=== PATIENT | female | born 1980 | race Hispanic/Latino ===

== ENCOUNTER 2017-08-19 09:57 | Emergency (ER) | payer OTHER ==
[2017-08-19] MEDS ORDERED: TETANUS/DIPHTHERIA TOXOID [ADULT] 0.5 ML VIAL IM ONE (10:22)
[2017-08-19] MEDS ORDERED: LIDOCAINE HCL 1% 20 ML VIAL ONE (10:27)
== END 2017-08-19 12:13 | disposition home or self-care (01) ==
LOC: EDH 09:57
DX: S01.111A Laceration without foreign body of right eyelid and periocular area, initial encounter (principal); S80.01XA Contusion of right knee, initial encounter; S80.02XA Contusion of left knee, initial encounter; E07.9 Disorder of thyroid, unspecified; Z90.49 Acquired absence of other specified parts of digestive tract; Z90.710 Acquired absence of both cervix and uterus; W01.198A Fall on same level from slipping, tripping and stumbling with subsequent striking against other object, initial encounter; Y93.89 Activity, other specified; Y92.89 Other specified places as the place of occurrence of the external cause; Y99.8 Other external cause status
CPT/HCPCS: 12051; 73562; 90471; 90714

== ENCOUNTER 2017-08-24 08:21 | Emergency (ER) | payer OTHER ==
[2017-08-24] MEDS ORDERED: HYDROCODONE/ACETAMINOPHEN 10/325 MG TAB ONE (08:45)
[2017-08-24] MEDS ORDERED: IBUPROFEN 400 MG TABLET ONE (09:23)
== END 2017-08-24 10:03 | disposition home or self-care (01) ==
LOC: EDH 08:21
DX: S93.491A Sprain of other ligament of right ankle, initial encounter (principal); S90.31XA Contusion of right foot, initial encounter; M25.561 Pain in right knee; M54.9 Dorsalgia, unspecified; E07.9 Disorder of thyroid, unspecified; Z90.49 Acquired absence of other specified parts of digestive tract; Z90.710 Acquired absence of both cervix and uterus; X58.XXXA Exposure to other specified factors, initial encounter; Y93.89 Activity, other specified; Y92.89 Other specified places as the place of occurrence of the external cause; Y99.8 Other external cause status
CPT/HCPCS: 73610; 73630

== ENCOUNTER 2018-05-31 08:41 | Emergency (ER) | payer MEDICAID, OTHER ==
[2018-05-31] MEDS ORDERED: KETOROLAC TROMETHAMINE 60 MG/2 ML VIAL ONE (09:11)
[2018-05-31] MEDS ORDERED: DEXAMETHASONE SOD PHOSPHATE 10MG/ML 1ML VIAL ONE (09:11)
== END 2018-05-31 10:09 | disposition home or self-care (01) ==
LOC: EDH 08:41
DX: M54.12 Radiculopathy, cervical region (principal); M79.601 Pain in right arm; E07.9 Disorder of thyroid, unspecified; Z88.8 Allergy status to other drugs, medicaments and biological substances; Z90.710 Acquired absence of both cervix and uterus; Z90.49 Acquired absence of other specified parts of digestive tract; Z87.891 Personal history of nicotine dependence
CPT/HCPCS: 72040; 96372 ×2; 99283; J1100; J1885

== ENCOUNTER 2018-10-31 18:54 | Emergency (ER) | payer MEDICAID ==
[2018-10-31 19:29] LABS: BASOPHILS % (AUTO) 0.4 % (0.0-5.0); EOSINOPHILS % (AUTO) 0.5 % (0.0-8.0); HEMATOCRIT 37.9 % (36-48); LYMPHOCYTES % (AUTO) 10.4 % (21.0-51.0); MEAN CORPUSCULAR HEMOGLOBIN 32.5 pg (27.0-33.0); MEAN CORPUSCULAR HGB CONC 34.7 g/dL (32.0-36.0); MEAN CORPUSCULAR VOLUME 93.5 fL (79-99); MONOCYTES % (AUTO) 5.4 % (3.0-13.0); NEUTROPHILS % (AUTO) 83.3 % (40.0-77.0); PLATELET COUNT (AUTO) 329 K/uL (130-400); RED BLOOD CELL COUNT(AUTO) 4.05 MIL/uL (4.00-5.50); RED CELL DISTRIBUTION WIDTH 12.8 % (11.0-15.5); WHITE BLOOD COUNT (AUTO) 9.8 K/uL (4.8-10.8)
[2018-10-31] MEDS ORDERED: DiphenhydrAMINE HCL 50 MG/ML VIAL ONE (19:29)
[2018-10-31] MEDS ORDERED: METHYLPREDNISOLONE SOD SUCC 125MG/2ML VIAL ONE (19:29)
[2018-10-31] MEDS ORDERED: FAMOTIDINE/PF 20 MG/2 ML VIAL IV ONE (19:30)
[2018-10-31 19:40] LABS: CREATININE 1.1 mg/dL (0.5-1.5); POTASSIUM 3.5 mmol/L (3.5-5.1)
[2018-10-31 19:44] LABS: ALBUMIN 3.5 g/dL (3.5-5.0); BILIRUBIN,TOTAL 0.2 mg/dL (0.2-1.0); TOTAL PROTEIN, SERUM 7.9 g/dL (6.0-8.3)
[2018-10-31] MEDS ORDERED: IOHEXOL-350 50ML VIAL IV ONE (21:12)
[2018-10-31 22:06] LABS: BILIRUBIN,URINE Negative (NEGATIVE); COLOR,URINE Yellow (YELLOW); GLUCOSE, URINE (UA) Negative (NEGATIVE); KETONES,URINE Negative (NEGATIVE); LEUKOCYTE ESTERASE ,URINE Negative (NEGATIVE); NITRATE,URINE Negative (NEGATIVE); OCCULT BLOOD,URINE Negative (NEGATIVE); PH,URINE 6.5 (5.0-8.0); PROTEIN,URINE Negative (NEGATIVE); UROBILINOGEN,URINE 0.2 mg/dL (0.2-1.0)
[2018-10-31 22:13] LABS: APPEARANCE,URINE CLEAR (CLEAR)
== END 2018-10-31 23:47 | disposition home or self-care (01) ==
LOC: EDH 18:54
DX: E04.9 Nontoxic goiter, unspecified (principal); E07.9 Disorder of thyroid, unspecified; Z90.49 Acquired absence of other specified parts of digestive tract; Z90.710 Acquired absence of both cervix and uterus; Z88.5 Allergy status to narcotic agent; Z88.8 Allergy status to other drugs, medicaments and biological substances
CPT/HCPCS: 36415; 70491; 80053; 81003; 85025; 93005; 96374; 96375; 99285; J1200; J2930; J3490; Q9967

== ENCOUNTER 2019-08-06 00:35 | Emergency (ER) | payer BC, MEDICAID ==
[2019-08-06] MEDS ORDERED: KETOROLAC TROMETHAMINE 60 MG/2 ML VIAL ONE (00:51)
[2019-08-06] MEDS ORDERED: LIDOCAINE 5% TOPICAL PATCH TP ONE (00:52)
[2019-08-06] MEDS ORDERED: DIAZEPAM 5 MG TABLET ONE (00:52)
== END 2019-08-06 01:27 | disposition home or self-care (01) ==
LOC: EDH 00:35
DX: M54.16 Radiculopathy, lumbar region (principal); Z90.49 Acquired absence of other specified parts of digestive tract; Z90.710 Acquired absence of both cervix and uterus; Z88.5 Allergy status to narcotic agent; Z88.2 Allergy status to sulfonamides
CPT/HCPCS: 96372; 99284; J1885

== ENCOUNTER 2020-06-19 19:30 | Emergency (ER) | payer BC ==
[2020-06-19 20:00] LABS: APPEARANCE,URINE Clear (CLEAR); BILIRUBIN,URINE Negative (NEGATIVE); COLOR,URINE Yellow (YELLOW); GLUCOSE, URINE (UA) Negative (NEGATIVE); KETONES,URINE Negative (NEGATIVE); LEUKOCYTE ESTERASE ,URINE Negative (NEGATIVE); NITRATE,URINE Negative (NEGATIVE); OCCULT BLOOD,URINE Negative (NEGATIVE); PH,URINE 6.5 (5.0-8.0); PROTEIN,URINE Negative (NEGATIVE); UROBILINOGEN,URINE 0.2 mg/dL (0.2-1.0)
[2020-06-19 20:31] LABS: BASOPHILS % (AUTO) 0.2 % (0.0-5.0); EOSINOPHILS % (AUTO) 0.2 % (0.0-8.0); HEMATOCRIT 41.8 % (36-48); LYMPHOCYTES % (AUTO) 23.6 % (21.0-51.0); MEAN CORPUSCULAR HEMOGLOBIN 31.6 pg (27.0-33.0); MEAN CORPUSCULAR HGB CONC 34.7 g/dL (32.0-36.0); MEAN CORPUSCULAR VOLUME 91.1 fL (79-99); MONOCYTES % (AUTO) 8.9 % (3.0-13.0); NEUTROPHILS % (AUTO) 66.9 % (40.0-77.0); PLATELET COUNT (AUTO) 283 K/uL (130-400); RED BLOOD CELL COUNT(AUTO) 4.59 MIL/uL (4.00-5.50); WHITE BLOOD COUNT (AUTO) 4.3 K/uL (4.8-10.8)
[2020-06-19] MEDS ORDERED: 0.9%NACL 1000ML 1,000 ML IV ONE (20:38)
[2020-06-19 20:47] LABS: POTASSIUM 4.2 mmol/L (3.5-5.1); PROTHROMBIN TIME 10.7 SEC (9.6-11.6)
[2020-06-19 20:48] LABS: PARTIAL THROMBOPLASTIN TIME 26.4 SEC (26.3-35.5)
[2020-06-19 20:52] LABS: ALBUMIN 3.2 g/dL (3.5-5.0); BILIRUBIN,TOTAL 0.3 mg/dL (0.2-1.0); TOTAL PROTEIN, SERUM 8.3 g/dL (6.0-8.3)
[2020-06-19 21:02] LABS: PHOSPHORUS 3.4 mg/dL (2.5-4.9)
[2020-06-19] MEDS ORDERED: IOHEXOL-350 75 ML VIAL IV ONE (22:04)
== END 2020-06-19 23:43 | disposition home or self-care (01) ==
LOC: EDH 19:30
DX: U07.1 COVID-19 (principal); E86.0 Dehydration; E07.9 Disorder of thyroid, unspecified; Z88.6 Allergy status to analgesic agent; Z90.710 Acquired absence of both cervix and uterus; Z90.49 Acquired absence of other specified parts of digestive tract
CPT/HCPCS: 36415; 71045; 71275; 80050; 81003; 83735; 83880; 84100; 84484; 85378; 85610; 85730; 87426; 93005; 96360; 96361; 99285; J7030; Q9967; 80053; 84443; 85025

== ENCOUNTER → 2020-10-26 | Outpatient (CLI) | payer BC | END | disposition home or self-care (01) | LOC: SHCH 08:49 | PROVIDERS: ATTEND Internal Medicine Cardiovascular Disease | DX: R00.2 Palpitations (principal) | CPT/HCPCS: 93306; 93356 ==

== ENCOUNTER → 2020-11-15 | Outpatient (CLI) | payer BC | END | disposition home or self-care (01) | LOC: SHCH 13:52 | PROVIDERS: ATTEND Internal Medicine Cardiovascular Disease | DX: I87.2 Venous insufficiency (chronic) (peripheral) (principal) | CPT/HCPCS: 93970 ==

== ENCOUNTER 2021-06-19 14:46 | Emergency (ER) | payer BC ==
[~2021-06-19] VITALS: Ht 160 cm; Wt 97.5 kg
[2021-06-19 15:37] LABS: BASOPHILS % (AUTO) 0.2 % (0.0-5.0); HEMATOCRIT 41.1 % (36-48); LYMPHOCYTES % (AUTO) 4.9 % (21.0-51.0); MEAN CORPUSCULAR HEMOGLOBIN 31.5 pg (27.0-33.0); MEAN CORPUSCULAR HGB CONC 34.5 g/dL (32.0-36.0); MEAN CORPUSCULAR VOLUME 91.1 fL (79-99); MONOCYTES % (AUTO) 2.9 % (3.0-13.0); NEUTROPHILS % (AUTO) 91.6 % (40.0-77.0); PLATELET COUNT (AUTO) 434 K/uL (130-400); RED BLOOD CELL COUNT(AUTO) 4.51 MIL/uL (4.00-5.50); WHITE BLOOD COUNT (AUTO) 11.1 K/uL (4.8-10.8)
[2021-06-19 15:39] LABS: APPEARANCE,URINE Clear (CLEAR); BILIRUBIN,URINE Negative (NEGATIVE); COLOR,URINE Yellow (YELLOW); GLUCOSE, URINE (UA) Negative (NEGATIVE); KETONES,URINE Trace mg/dL (NEGATIVE); LEUKOCYTE ESTERASE ,URINE Negative (NEGATIVE); NITRATE,URINE Negative (NEGATIVE); OCCULT BLOOD,URINE Negative (NEGATIVE); PROTEIN,URINE Trace mg/dL (NEGATIVE)
[2021-06-19 15:44] LABS: BACTERIA,URINE Few /HPF (None Seen); RBC,URINE 0-1 /HPF (0-1); SQUAMOUS EPITHELIAL CELL,UR Moderate /HPF (0-2); WBC,URINE 0-1 /HPF (0-1)
[2021-06-19 15:48] LABS: CREATININE 1.1 mg/dL (0.5-1.5); POTASSIUM 3.3 mmol/L (3.5-5.1)
[2021-06-19 15:52] LABS: ALBUMIN 3.8 g/dL (3.5-5.0); BILIRUBIN,TOTAL 0.5 mg/dL (0.2-1.0); TOTAL PROTEIN, SERUM 8.6 g/dL (6.0-8.3)
[2021-06-19] MEDS ORDERED: 0.9%NACL 1000ML 1,000 ML IV ONE (16:00)
[2021-06-19] MEDS ORDERED: MORPHINE 2 MG SYG IVP ONE (16:00)
[2021-06-19] MEDS ORDERED: ONDANSETRON 4MG INJ IVP ONE (16:00)
[2021-06-19] MEDS ORDERED: IOHEXOL-350 75 ML VIAL IV ONE (16:00)
[2021-06-19 16:42] VITALS: BP 148/71
[2021-06-19] MEDS ORDERED: CIPR-278 PO (17:09)
[2021-06-19] MEDS ORDERED: METO10TA41 PO (17:09)
[2021-06-19] MEDS ORDERED: KCL 20 MEQ ERTAB PO ONE (17:30)
== END 2021-06-19 17:48 | disposition home or self-care (01) ==
LOC: EDH 14:46
DX: K52.9 Noninfective gastroenteritis and colitis, unspecified (principal); E03.9 Hypothyroidism, unspecified; Z88.5 Allergy status to narcotic agent; Z90.49 Acquired absence of other specified parts of digestive tract; Z90.710 Acquired absence of both cervix and uterus
CPT/HCPCS: 36415; 74177; 80053; 81001; 82150; 83690; 85025; 96374; 96375; 99284; J2405; Q9967

== ENCOUNTER 2022-10-13 23:07 | Emergency (ER) | payer BC ==
[~2022-10-13] VITALS: Ht 160 cm; Wt 90.7 kg
[~2022-10-13 23:07] MED LIST: CIPR-278 PO; METO10TA41 PO
[2022-10-13] MEDS ORDERED: NITROGLYCERIN 0.4 MG SL TAB SL PRN (23:30)
[2022-10-13] MEDS ORDERED: KETOROLAC 30MG VIAL (30MG/ML) IVP ONE (23:30)
[2022-10-13] MEDS ORDERED: ASPIRIN 325MG TAB PO ONE (23:30)
[2022-10-13 23:36] LABS: BASOPHILS % (AUTO) 0.3 % (0.0-5.0); EOSINOPHILS % (AUTO) 0.5 % (0.0-8.0); HEMATOCRIT 41.6 % (36-48); LYMPHOCYTES % (AUTO) 19.6 % (21.0-51.0); MEAN CORPUSCULAR HEMOGLOBIN 30.1 pg (27.0-33.0); MEAN CORPUSCULAR HGB CONC 33.9 g/dL (32.0-36.0); MEAN CORPUSCULAR VOLUME 88.7 fL (79-99); NEUTROPHILS % (AUTO) 72.1 % (40.0-77.0); PLATELET COUNT (AUTO) 344 K/uL (130-400); RED BLOOD CELL COUNT(AUTO) 4.69 MIL/uL (4.00-5.50); RED CELL DISTRIBUTION WIDTH 12.7 % (11.0-15.5); WHITE BLOOD COUNT (AUTO) 8.6 K/uL (4.8-10.8)
[2022-10-13 23:47] LABS: CREATININE 0.9 mg/dL (0.5-1.5); POTASSIUM 3.4 mmol/L (3.5-5.1)
[2022-10-13 23:49] LABS: INR 0.94 (0.85-1.15); PROTHROMBIN TIME 10.3 SEC (9.6-11.6)
[2022-10-13 23:50] LABS: PARTIAL THROMBOPLASTIN TIME 25.8 SEC (26.3-35.5)
[2022-10-13 23:52] LABS: TOTAL PROTEIN, SERUM 8.4 g/dL (6.0-8.3)
[2022-10-14 00:17] LABS: B-TYPE NATRIURETIC PEPTIDE 42 pg/mL (0-100)
[2022-10-14 01:04] VITALS: BP 125/63
== END 2022-10-14 01:25 | disposition home or self-care (01) ==
LOC: EDH 23:07
DX: R07.9 Chest pain, unspecified (principal); E03.9 Hypothyroidism, unspecified; Z90.710 Acquired absence of both cervix and uterus; Z90.49 Acquired absence of other specified parts of digestive tract; Z88.8 Allergy status to other drugs, medicaments and biological substances
CPT/HCPCS: 99284; 71045; 84484; 80053; 83880; 85025; 85378; 85610; 85730; 36415; 93005; 96374; J1885

== ENCOUNTER 2022-12-20 13:42 | Emergency (ER) | payer BC ==
[~2022-12-20] VITALS: Ht 160 cm; Wt 88.0 kg
[2022-12-20] MEDS ORDERED: ACETAMINOPHEN 500 MG TABLET PO ONE (16:00)
[2022-12-20 18:54] VITALS: BP 124/67
== END 2022-12-20 18:45 | disposition home or self-care (01) ==
LOC: EDH 13:42
DX: S93.601A Unspecified sprain of right foot, initial encounter (principal); E03.9 Hypothyroidism, unspecified; Z88.5 Allergy status to narcotic agent; Z90.49 Acquired absence of other specified parts of digestive tract; Z90.710 Acquired absence of both cervix and uterus; X58.XXXA Exposure to other specified factors, initial encounter; Y93.01 Activity, walking, marching and hiking; Y92.89 Other specified places as the place of occurrence of the external cause; Y99.8 Other external cause status
CPT/HCPCS: 73630

== ENCOUNTER 2023-08-11 00:12 | Emergency (ER) | payer BC, MEDICAID ==
[~2023-08-11] VITALS: Ht 162.6 cm; Wt 99.8 kg
[2023-08-11] MEDS: ACETAMINOPHEN 500 MG TABLET PO ONE (00:33)
[2023-08-11] MEDS: IBUPROFEN 800 MG TAB PO ONE (00:33)
[2023-08-11] MEDS: METOCLOPRAMIDE 10 MG TABLET PO ONE (02:55)
[2023-08-11 04:00] LABS: BASOPHILS # (AUTO) 0.04 K/uL (0.00-0.20); BASOPHILS % (AUTO) 0.5 % (0.0-5.0); EOSINOPHILS # (AUTO) 0.09 K/uL (0.00-0.70); EOSINOPHILS % (AUTO) 1.1 % (0.0-8.0); HEMATOCRIT 37.4 % (36-48); IMMATURE GRANULOCYTE ABSOLUTE 0.04 K/uL (0-1); LYMPHOCYTES # (AUTO) 0.9 K/uL (1.0-4.8); LYMPHOCYTES % (AUTO) 11.3 % (21.0-51.0); MEAN CORPUSCULAR HEMOGLOBIN 31.3 pg (27.0-33.0); MEAN CORPUSCULAR VOLUME 89.5 fL (79-99); MONOCYTES # (AUTO) 0.7 K/uL (0.1-1.0); NEUTROPHILS # (AUTO) 6.5 K/uL (1.8-7.7); NEUTROPHILS % (AUTO) 78.6 % (40.0-77.0); PLATELET COUNT (AUTO) 308 K/uL (130-400); RED BLOOD CELL COUNT(AUTO) 4.18 MIL/uL (4.00-5.50); RED CELL DISTRIBUTION WIDTH 12.6 % (11.0-15.5); WHITE BLOOD COUNT (AUTO) 8.2 K/uL (4.8-10.8)
[2023-08-11 04:01] LABS: APPEARANCE,URINE CLEAR (CLEAR); BILIRUBIN,URINE NEGATIVE (NEGATIVE); COLOR,URINE LIGHT-YELLOW (YELLOW); GLUCOSE, URINE (UA) NEGATIVE (NEGATIVE); KETONES,URINE NEGATIVE (NEGATIVE); LEUKOCYTE ESTERASE ,URINE NEGATIVE Leu/uL (NEGATIVE); NITRATE,URINE NEGATIVE (NEGATIVE); OCCULT BLOOD,URINE NEGATIVE (NEGATIVE); PH,URINE 6.5 (5.0-8.0); PROTEIN,URINE NEGATIVE (NEGATIVE); UROBILINOGEN,URINE 0.2 mg/dL (0.2-1.0)
[2023-08-11 04:03] LABS: ADD UA MICROSCOPIC NO
[2023-08-11 04:08] LABS: RAPID GROUP A STREP negative (NEGATIVE)
[2023-08-11 04:11] LABS: CREATININE 1.2 mg/dL (0.5-1.5); POTASSIUM 3.9 mmol/L (3.5-5.1)
[2023-08-11 04:17] LABS: INFLUENZA TYPE A Negative For Type A (NEGATIVE); INFLUENZA TYPE B Negative For Type B (NEGATIVE)
[2023-08-11 04:40] LABS: COVID19 (SARS ANTIGEN RAPID) POSITIVE FOR SARS AG (NEGATIVE)
[2023-08-11 08:26] VITALS: BP 126/61; PULSE 75; RESP 17; O2SAT 99
[2023-08-11] MEDS ORDERED: ACET160S2 PO (08:34)
== END 2023-08-11 08:28 | disposition home or self-care (01) ==
LOC: EDH 00:12
DX: U07.1 COVID-19 (principal); G44.209 Tension-type headache, unspecified, not intractable; E03.9 Hypothyroidism, unspecified; Z88.5 Allergy status to narcotic agent; Z90.710 Acquired absence of both cervix and uterus; Z90.49 Acquired absence of other specified parts of digestive tract
CPT/HCPCS: 36415; 70450; 80048; 81003; 85025; 87426; 87804; 87880

== ENCOUNTER 2024-09-08 13:31 | Emergency (ER) | payer BC, MEDICAID ==
[~2024-09-08] VITALS: Ht 160 cm; Wt 104.3 kg
[~2024-09-08 13:31] MED LIST changes: +ACET160S2 PO
--- NOTE | 2024-09-08 15:28 | HMCIMG ---
Exam Type: LUMBAR SPINE 2-3VWS Clinical Information: pain Comparison: None Findings: Exam of the lumbosacral spine demonstrates no evidence of fracture or subluxation. There are mild spondylitic changes. The facet joints show minimal degenerative changes. The alignment of the spine is normal. The disc spaces are intact. Bone mineralization is normal. Impression: Spondylitic changes and degenerative changes of the apophyseal joints as noted.
--- NOTE | 2024-09-08 15:28 | HMCIMG ---
Exam Type: PELVIS COMPLETE MIN 3VWS Clinical Information: pain Comparison: None Findings: The bone examination is unremarkable. No fractures or dislocations are seen. No radiopaque foreign bodies are noted. Soft tissues are preserved. IMPRESSION: Normal examination.
[2024-09-08] MEDS: ketOROlac 15MG/ML VIAL (15MG/ML) IM ONE (16:05)
[2024-09-08] MEDS ORDERED: LIDO1ADH82 TP (16:24)
[2024-09-08] MEDS ORDERED: MELO-108 PO (16:24)
[2024-09-08] MEDS ORDERED: PRED20TA3 PO (16:24)
--- NOTE | 2024-09-08 16:24 | ERN ---
General Chief Complaint: Back Pain or Injury Stated Complaint: BACK PAIN Time Seen by MD: 13:42 Time Seen by Midlevel: 13:42 Source: patient History of Present Illness Initial Comments 43-year-old female who presents to the emergency department due to back pain onset two days. Patient reports she has a tingling sensation radiating down her leg. Denies any saddle numbness, bowel dysfunction, urine incontinence, inability to walk, or further associated symptoms. Denies any injuries or trauma to the back. States she has had similar pains before and was diagnosed with sciatica. PMHx hypothyroidism Allergies: Coded Allergies: cyclobenzaprine (Unverified Allergy, Unknown, 08/06/19) hydrocodone (Unverified Allergy, Unknown, 08/06/19) Home Meds Active Scripts Lidocaine (Lidocaine) 4 % Adh..patch, 1 PATCH TP DAILY for 7 Days, #7 PATCH 0 Refills Prov:CAROL UMAÑA 09/08/24 Prednisone (Prednisone) 20 Mg Tablet, 1 TAB PO DAILY for 5 Days, #5 TAB 0 Refills Prov:CAROL UMAÑA 09/08/24 Meloxicam (Meloxicam) 15 Mg Tablet, 1 TAB PO DAILY for 5 Days, #5 TAB 0 Refills Prov:CAROL UMAÑA 09/08/24 Acetaminophen (Tylenol Elixir) 325 Mg/10.15 Ml Solution, 500 MG PO TIDP PRN for headache, #30 TAB Prov:DAYAN MANTILLA MD 08/11/23 Metoclopramide HCl (Reglan 10 mg Tab) 10 Mg Tablet, 10 MG PO TID, #10 TAB Prov:ABEL DWYER DO 06/19/21 Ciprofloxacin HCl (Cipro) 500 Mg Tablet, 1 TAB PO BID for 7 Days, #14 TAB 0 Refills Prov:ABEL DWYER DO 06/19/21 Past Medical History Past Medical History: Arrythmia, Hypothyroid, Other Medical History Other: THYROID,PALPITATIONS Past Surgical History: Hysterectomy, Cholecystectomy Family History Family History: Negative Social History Social History: Negative, Lives with family, Lives [place] ROS Dictation Constitutional: Negative for fever,chills, and weight loss Eyes: Negative for injury, pain,redness, and discharge ENT: Negative for injury,pain or swelling Cardiovascular: Negative for chest pain, palpitations, and edema Respiratory: Negative for shortness of breath, cough, and wheezing, Abdomen/GI: Negative for abdominal pain, nausea, vomiting, diarrhea, and constipation Back: Positive for back pain Negative for injury : Negative for painful urination, bleeding or discharge MS/Extremity: Negative for injury and deformity Skin: Negative for rash, and discoloration Neuro: Negative for headache, weakness, numbness, tingling, and seizure Psych: Negative for suicide ideation, homicidal ideation, and hallucinations Physical Exam Physical Exam Dictation General: awake, alert, no acute distress Head/Face: Normocephalic, atraumatic Eyes: PERRL, EOMI, normal conjunctiva ENT: oral cavity clear, oral mucosa moist Neck: Supple, normal range of motion Cardiovascular: RRR, normal S1/S2 Respiratory: CTAB, no respiratory distress Skin: Warm, dry, normal turgor, no rash MS/Extremity: Pulses equal, no cyanosis, neurovascular intact, FROM Neuro: COAx4, GCS 15, strength 5/5, CN 2-12 intact, normal cerebellar exam, normal gait, Psych: Normal behavior, mood, and affect normal Results EKG/XRAY/US/CT/MRI X-RAY Comment REASON: pain ORDERING PHYSICIAN: CAROL UMAÑA PROCEDURE: LUMB 2 3VW - LUMBAR SPINE 2-3VWS Exam Type: LUMBAR SPINE 2-3VWS Clinical Information: pain Comparison: None Findings: Exam of the lumbosacral spine demonstrates no evidence of fracture or subluxation. There are mild spondylitic changes. The facet joints show minimal degenerative changes. REASON: pain ORDERING PHYSICIAN: CAROL UMAÑA PROCEDURE: [id number] - PELVIS COMPLETE MIN 3VWS Exam Type: PELVIS COMPLETE MIN 3VWS Clinical Information: pain Comparison: None Findings: The bone examination is unremarkable. No fractures or dislocations are seen. No radiopaque foreign bodies are noted. Soft tissues are preserved. IMPRESSION: Normal examination. DICTATED BY: KARTHIKEYAN HERNANDEZ MD DATE: 09/08/241525 The alignment of the spine is normal. The disc spaces are intact. Bone mineralization is normal. Impression: Spondylitic changes and degenerative changes of the apophyseal joints as noted. DICTATED BY: KARTHIKEYAN HERNANDEZ MD DATE: 09/08/24 152 MDM MDM: Differential diagnosis: Sciatic pain, sprain, muscle spasms Rationale: 43-year-old female who presents to the emergency department due to back pain onset two days. Patient reports she has a tingling sensation radiating down her leg. Denies any saddle numbness, bowel dysfunction, urine incontinence, inability to walk, or further associated symptoms. Denies any injuries or trauma to the back. States she has had similar pains before and was diagnosed with sciatica. PMHx hypothyroidism Lumbosacral x-rays obtained indicate mild spondylitic changes and degenerative changes noted but no fractures. Per physical examination patient is in no acute distress, normal sensation, normal gait. Ketorolac and dexamethasone administered in the ED. Patient educated on findings and diagnosis. Advised to follow up with PCP. Return to the emergency department if any worsening symptoms. Patient verbalized understanding. Patient stable for discharge. There are no social concerns with this patient. I independently interpreted the test that were performed, results were reviewed by me and considered findings on radiology if ordered. Medical management and examination interpretation discussions were had by me with other qualified healthcare professionals as indicated for the patient's care. ED Course Orders Procedure Category Date Status Time Lumbar Spine 2-3vws RAD 09/08/24 Resulted 14:52 Pelvis Complete Min RAD 09/08/24 Resulted 3vws 14:52 Ketorolac PHA 09/08/24 Complete Tromethamine 15mg/Ml 15:00 Dexamethasone 4mg/Ml PHA 09/08/24 Complete 1ml Vial (Dexametha 16:30 Current Medications Medications (Trade) Dose Ordered Sig/Mckayla Route PRN Reason Start Time Stop Time Status Last Admin Dose Admin Dexamethasone Sodium Phosphate (dexaMETHasone 4MG/ML 1ML VIAL) 6 mg ONCE ONCE IM 09/08/24 16:30 09/08/24 16:31 DC 09/08/24 16:30 Ketorolac Tromethamine (toRADol) 15 mg ONCE ONCE IM 09/08/24 15:00 09/08/24 15:01 DC 09/08/24 16:05 Vital Signs Date Time Temp Pulse Resp B/P (MAP) Pulse Ox O2 Delivery O2 Flow Rate FiO2 09/08/24 17:00 98.2 66 16 126/72 98 Room Air* 0 21 09/08/24 15:47 98.2 65 18 130/75 98 Room Air* 0 21 09/08/24 14:48 98.4 68 18 133/79 97 0 DX & DISP Disposition: Discharge Departure Impression: Primary Impression: Sciatic nerve pain Condition: Stable Scripts Lidocaine (Lidocaine) 4 % Adh..patch 1 PATCH TP DAILY for 7 Days, #7 PATCH 0 Refills Prov: CAROL UMAÑA 09/08/24 Prednisone (Prednisone) 20 Mg Tablet 1 TAB PO DAILY for 5 Days, #5 TAB 0 Refills Prov: CAROL UMAÑA 09/08/24 Meloxicam (Meloxicam) 15 Mg Tablet 1 TAB PO DAILY for 5 Days, #5 TAB 0 Refills Prov: CAROL UMAÑA 09/08/24 Additional Instructions: Discharge home. Rest. Follow up with primary care DrRosalina in 24 hours. Return to the ER for any acute changes or worsening symptoms. If any medications were prescribed take as directed. Okay to continue home medications unless otherwise discussed during your visit in the emergency room today. Patient was also advised to follow-up with primary care physician in 1 to 2 days for continued monitoring. Referrals: RONY CÁRDENAS MD (PCP) I performed the substantive portion of the visit. I have reviewed and personally made and approve the management plan that is documented in the notes by myself or the TAWNYA. I acknowledge full responsibility for the patient's management plan. CAROL UMAÑA Sep 08, 2024 16:24 SRIRAM GORDON DO Sep 09, 2024 07:31
[2024-09-08] MEDS: dexaMETHasone SOD PHOSPHATE 4 MG/ML 1ML VIAL IM ONE (16:30)
[2024-09-08 17:00] VITALS: BP 126/72; PULSE 66; RESP 16; TEMP 98.3; O2SAT 98
== END 2024-09-08 17:06 | disposition home or self-care (01) ==
LOC: EDH 13:31
DX: M54.30 Sciatica, unspecified side (principal); E03.9 Hypothyroidism, unspecified; Z79.1 Long term (current) use of non-steroidal anti-inflammatories (NSAID); Z79.52 Long term (current) use of systemic steroids; Z88.5 Allergy status to narcotic agent; Z90.49 Acquired absence of other specified parts of digestive tract; Z90.710 Acquired absence of both cervix and uterus
CPT/HCPCS: 99284; 72100; 72190; 96372 ×2; J1100; J1885

== ENCOUNTER 2025-05-22 15:12 | Emergency (ER) | payer BC, MEDICAID ==
[~2025-05-22] VITALS: Ht 160 cm; Wt 95.3 kg
[~2025-05-22 15:12] MED LIST changes: +LIDO1ADH82 TP; +MELO-108 PO; +PRED20TA3 PO
--- NOTE | 2025-05-22 15:41 | ERN ---
General Chief Complaint: Skin Rash/Abscess Stated Complaint: RASH UNDER RT ARM Time Seen by MD: 15:18 Source: patient History of Present Illness Initial Comments Patient is a 44-year-old female who came to the ER with complaint of rash on the right lateral just below the axilla. 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 For some time the patient developed sharp pain in the region for which she took took Benadryl that helped with the pain. The patient saw the initially there was 1 or 2 blisters then it increased in numbers. The patient applied a dressing to the area by herself. Timing/Duration: constant Severity: mild Allergies: Coded Allergies: cyclobenzaprine (Unverified Allergy, Unknown, 08/06/19) hydrocodone (Unverified Allergy, Unknown, 08/06/19) Home Meds Active Scripts Lidocaine (Lidocaine) 4 % Adh..patch, 1 PATCH TP DAILY for 7 Days, #7 PATCH 0 Refills Prov:CAROL UMAÑA 09/08/24 Prednisone (Prednisone) 20 Mg Tablet, 1 TAB PO DAILY for 5 Days, #5 TAB 0 Refills Prov:CAROL UMAÑA 09/08/24 Meloxicam (Meloxicam) 15 Mg Tablet, 1 TAB PO DAILY for 5 Days, #5 TAB 0 Refills Prov:CAROL UMAÑA 09/08/24 Acetaminophen (Tylenol Elixir) 325 Mg/10.15 Ml Solution, 500 MG PO TIDP PRN for headache, #30 TAB Prov:DAYAN MANTILLA MD 08/11/23 Metoclopramide HCl (Reglan 10 mg Tab) 10 Mg Tablet, 10 MG PO TID, #10 TAB Prov:ABEL DWYER DO 06/19/21 Ciprofloxacin HCl (Cipro) 500 Mg Tablet, 1 TAB PO BID for 7 Days, #14 TAB 0 Refills Prov:ABEL DWYER DO 06/19/21 Past Medical History Past Medical History: Arrythmia, Hypothyroid, Other Medical History Other: THYROID,PALPITATIONS Past Surgical History: Hysterectomy, Cholecystectomy Surgical History Other: HAND, BUNIONECTOMY Family History Family History: Negative Social History Social History: Negative, Lives with family, Lives in Care Home Constitutional: (-) chills, (-) diaphoresis, (-) fever, (-) malaise, (-) weakness, (-) other documentation EENTM: (-) eye pain, (-) blurred vision, (-) tearing, (-) double vision, (-) ear pain, (-) ear discharge, (-) nose pain, (-) nose congestion, (-) throat pain, (-) Throat swelling, (-) mouth pain, (-) tooth pain, (-) mouth swelling, (-) other documentation Respiratory: (-) cough, (-) orthopnea, (-) short of breath, (-) stridor, (-) wheezing, (-) other documentation Cardiovascular: (-) chest pain, (-) edema, (-) palpitations, (-) syncope, (-) dyspnea on exertion, (-) other documentation Gastrointestinal/Abdominal: (-) nausea, (-) vomiting, (-) diarrhea, (-) abdominal pain, (-) abdominal distention, (-) constipation, (-) rectal bleeding, (-) dark stool/melena, (-) other documentation Genitourinary: (-) vaginal discharge, (-) vaginal bleeding, (-) dysuria, (-) frequency, (-) hematuria, (-) pain, (-) other documentation Musculoskeletal: (-) Neck pain, (-) back pain, (-) Flank Pain, (-) joint pain, (-) joint swelling, (-) muscle pain, (-) muscle stiffness, (-) gout, (-) other documentation Skin: (+) rash Neuro: (-) altered mental status, (-) headache, (-) syncope, (-) paralysis, (-) numbness, (-) seizure, (-) pre-existing deficit, (-) tremors, (-) weakness, (-) dizziness, (-) slurred speech, (-) vertigo, (-) other documentation Physical Exam General Appearance: (+) no apparent distress Orientation: (+) alert, (+) oriented x 3 Head/Face Trauma: No Ear, Nose, Throat: (+) hearing grossly normal Neck: (+) normal inspection Respiratory: (+) lungs clear Heart: (+) regular Skin: (+) rash Skin Comment Vesicles on the right lateral chest below the axilla Results Laboratory and Microbiology Labs Reviewed?: Yes MDM MDM: Differential diagnosis: Shingles Rationale: Tests considered and ordered secondary to shared decision making include: Previous outside records reviewed: Old ER visits. Risk of complication and/or morbidity or mortality of patient management: None Medications-Per medication reconciliation Need for hospitalization: Patient does not meet criteria for hospitalization. Need for emergency major/minor surgery: No Was seen and examined in the ER and physical examination showed that the patient had vesicles on the right lateral chest below the axilla. As per physical examination and patient has history, the patient most likely has shingles. The patient was explained the diagnosis and explained that she will be prescribed antiviral medications. She was explained that the condition is contagious if someone comes in direct direct contact with the vesicles therefore she should cover area all the time. ED Course Orders Procedure Category Date Status Time Gabapentin 100 Mg Cap PHA 05/22/25 Transmitted (Neurontin 100 Mg 16:00 Vital Signs Date Time Temp Pulse Resp B/P (MAP) Pulse Ox O2 Delivery O2 Flow Rate FiO2 05/22/25 15:17 97.9 77 16 147/69 98 Room Air 0 DX & DISP Disposition: Discharge Departure Impression: Primary Impression: Shingles Condition: Stable Scripts Gabapentin (Gabapentin) 100 Mg Capsule 1 CAP PO BID for 7 Days, #14 CAP 0 Refills Prov: FRANCOISE RUBIO MD 05/22/25 Prednisone (Prednisone) 10 Mg Tab.ds.pk 2 TAB PO DAILY for 5 Days, #21 TAB 0 Refills Prov: FRANCOISE RUBIO MD 05/22/25 Valacyclovir HCl (Valacyclovir) 1,000 Mg Tablet 1 TAB PO TID for 7 Days, #21 TAB 0 Refills Prov: FRANCOISE RUBIO MD 05/22/25 Additional Instructions: FOLLOW-UP WITH PRIMARY CARE PROVIDER IN 1 TO 2 DAYS. TAKE MEDICATIONS DIRECTED HERE IN THE EMERGENCY ROOM. OKAY TO CONTINUE HOME MEDICATIONS UNLESS OTHERWISE DISCUSSED DURING YOUR VISIT IN THE EMERGENCY ROOM TODAY. RETURN TO YOUR NEAREST EMERGENCY ROOM IF SYMPTOMS WORSEN OR IF THERE IS NO IMPROVEMENT. CALL 911 IF YOU NEED IMMEDIATE ASSISTANCE. TAKE TYLENOL [id number] NEEDED AND IF NO CONTRAINDICATIONS ARE PRESENT. INCREASE ORAL HYDRATION. A WOUND CULTURE OR URINE CULTURE WAS ORDERED HERE IN THE EMERGENCY ROOM DEPARTMENT PLEASE FOLLOW-UP WITH PRIMARY CARE PROVIDER AND ADVISE THEM TO GET REPORTS FROM OUR FACILITY. IF YOU HAD ANY ESTUARDO WRAP/SPLINTS THAT WERE APPLIED HERE, PLEASE DO NOT REMOVE THEM UNTIL YOU SEE YOUR PRIMARY CARE OR SPECIALTY. Referrals: Referrals: SELF,REFERRAL (PCP) ALYSHA OVERTON MD Time of Disposition: 15:43 SHIRLEY YOUNG MD May 22, 2025 15:41 FRANCOISE RUBIO MD May 22, 2025 15:45
[2025-05-22] MEDS ORDERED: PRED10TA23 PO (15:45)
[2025-05-22] MEDS ORDERED: VALA100031 PO (15:45)
[2025-05-22] MEDS ORDERED: GABA-529 PO (15:45)
[2025-05-22 15:53] VITALS: BP 147/69; PULSE 77; RESP 16; TEMP 97.9; O2SAT 98
== END 2025-05-22 16:05 | disposition home or self-care (01) ==
LOC: EDH 15:12
DX: B02.9 Zoster without complications (principal); E03.8 Other specified hypothyroidism; Z88.5 Allergy status to narcotic agent; Z88.6 Allergy status to analgesic agent; Z79.52 Long term (current) use of systemic steroids; Z79.1 Long term (current) use of non-steroidal anti-inflammatories (NSAID); Z90.49 Acquired absence of other specified parts of digestive tract; Z90.710 Acquired absence of both cervix and uterus
CPT/HCPCS: 99283